=== PATIENT | male | born 1980 | race Hispanic/Latino ===

== ENCOUNTER 2024-03-20 17:20 | Emergency (ER) | payer SELFPAY ==
[2024-03-20] MEDS ORDERED: IPRATROPIUM BROM 0.5MG/2.5ML ONE (18:15)
[2024-03-20] MEDS ORDERED: dexAMETHasone 10 MG/ML VIAL ONE (18:15)
[2024-03-20] MEDS ORDERED: ALBUTEROL 2.5 MG/3 ML NEB SOL ONE (18:15)
--- NOTE | 2024-03-20 18:25 | RAD REPORT ---
EXAMINATION: TWO VIEW CHEST XR CLINICAL INDICATION: COUGH TECHNIQUE: 2 views of the chest was performed. COMPARISON: No prior exam. FINDINGS: Interstitial markings mildly prominent which probably represent infection. No focal consolidation typ ical pneumonia seen. The heart is upper limit of normal in size. No displaced fractures evident.
[2024-03-20 19:25] LABS: SARS-CoV-2 Antigen CONTROL BLUE LINE VIS/BG OK; SARS-CoV-2 Antigen Rapid Res Negative (Negative)
--- NOTE | 2024-03-20 19:33 | EDPHYS ---
Physician Documentation [facility] Name: Sam Paz Age: 43 yrs Sex: Male : 1980 Arrival Date: 03/20/2024 Time: 17:20 Bed 20 Private MD: ED Physician Tanya Russell HPI: 03/20 17:59 This 43 yrs old Male presents to ER via Ambulatory with complaints of Painful Cough, sb4 Flu Symptoms, Congestion. 17:59 cough x 1 month. has been worse the past few days with sinus congestion and headache. sb4 positive sick contacts at work. has not taken any OTC medications. endorses mild sob. no nausea, vomiting, or diarrhea. Historical: - Allergies: 17:50 PENICILLINS; tm6 - PMHx: 17:50 None; tm6 - PSHx: 17:50 None; tm6 - Immunization history:: Flu vaccine is not up to date. - Infectious Disease History:: Denies. - Social history:: Smoking status: Patient reports the use of cigarette tobacco products, smokes one-half pack cigarettes per day. ROS: 17:59 Constitutional: Negative for fever, chills, and weight loss, sb4 17:59 ENT: Positive for sinus congestion, 17:59 Respiratory: Positive for cough, pleurisy, shortness of breath, 17:59 Neuro: Positive for headache, 17:59 All other systems are negative, Exam: 17:59 Head/Face: Normocephalic, atraumatic. Eyes: Extra-ocular motions intact. Periorbital sb4 areas with no swelling, redness, or edema. ENT: Mucous membranes moist. Cardiovascular: Regular rate and rhythm with a normal S1 and S2. Respiratory: No increased work of breathing, no retractions or nasal flaring. Abdomen/GI: Soft, non-tender, no distension. Skin: Warm, dry with normal turgor. Normal color with no rashes, no lesions, and no evidence of cellulitis. 17:59 Constitutional: The patient appears alert, awake, obviously ill, Vital Signs: 17:48 BP 154 / 97; Pulse 106; Resp 20; Temp 98.5(O); Pulse Ox 96% on R/A; MAP 112 mmHg; tm6 Weight 79.38 kg; Height 5 ft. 8 in. ; Pain 0/10; 19:18 BP 138 / 95; Pulse 91; Resp 19; Pulse Ox 95% on R/A; rg5 17:48 Body Mass Index 26.61 (79.38 kg, 172.72 cm) tm6 17:48 Pain Scale: Adult tm6 MDM: 17:42 Medical Screening Exam initiated sb4 19:34 Data reviewed: vital signs, nurses notes, lab test result(s), radiologic studies, and sb4 as a result, I will discharge patient. Counseling: I had a detailed discussion with the patient and/or guardian regarding the historical points, exam findings, and any diagnostic results supporting the discharge/admit diagnosis, radiology results, the need for outpatient follow up, for definitive care, to return to the emergency department if symptoms worsen or persist or if there are any questions or concerns that arise at home. 03/20 17:45 Order name: SARS RAPID; Complete Time: 19:26 sb4 03/20 17:45 Order name: Flu; Complete Time: 19:26 sb4 03/20 17:45 Order name: Chest Pa And Lat (2 Views) XRAY; Complete Time: 18:26 sb4 Administered Medications: 18:00 Drug: DuoNeb Nebulize (3:1) (2.5 mg - 0.5 mg) 3 ml Nebulizer once Route: Nebulizer; rs5 19:00 Follow up: Response: No adverse reaction rg5 18:00 Drug: Dexamethasone IM 10 mg IM once Route: IM; Site: left ventrogluteal; rs5 19:00 Follow up: Response: No adverse reaction rg5 Disposition Summary: 03/20/24 19:32 Discharge Ordered Notes: Location: Home sb4 Problem: new sb4 Symptoms: have improved sb4 Condition: Stable sb4 Diagnosis - Acute upper respiratory infection, unspecified sb4 Followup: sb4 - With: Emergency Department - When: As needed - Reason: Trouble breathing, Worsening of condition Discharge Instructions: - Discharge Summary Sheet sb4 - Upper Respiratory Infection, Adult, [id number] sb4 Forms: - Antibiotic Education sb4 - Patient Portal Instructions sb4 - Leadership Thank You Letter sb4 Prescriptions: - albuterol sulfate 90 mcg/actuation Inhalation HFA Aerosol Inhaler - inhale 1 inhalation INHALATION route every 4 to 6 hours as needed for wheezing sb4 or shortness of breath; 1 Applicator; Refills: 0, Product Selection Permitted - Zithromax Z-Olman 250 mg Oral Tablet - take 1 tablet ORAL route as directed for 5 days Day 1 - take two (2) tablets sb4 one time. Day 2, 3, 4 , 5 take one (1) tablet once daily.; 6 tablet; Refills: 0, Product Selection Permitted - Prednisone 20 mg Oral Tablet - take 1 tablet ORAL route every 12 hours for 5 days; 10 tablet; Refills: 0, sb4 Product Selection Permitted Signatures: Dispatcher [employer] EDMS Gege Wright PA-C PA-C sb4 Kishan Olguin, RN RN rs5 Nuha Del Rosario RN RN tm6 Rey Morelos RN rg5 Corrections: (The following items were deleted from the chart) 17:45 17:45 SARS-COV-2 Antigen Rapid+I.LAB.BRZ ordered. EDMS EDMS 17:45 17:45 Influenza Screen (A \T\ B)+BA.LAB.BRZ ordered. EDMS EDMS 17:45 17:45 Chest Pa And Lat (2 Views)+RAD.RAD.BRZ ordered. EDMS EDMS
--- NOTE | 2024-03-20 19:33 | ER ---
Nurse's Notes [facility] Name: Sam Paz Age: 43 yrs Sex: Male : 1980 Arrival Date: 03/20/2024 Time: 17:20 Bed 20 Private MD: Diagnosis: Acute upper respiratory infection, unspecified Presentation: 03/20 17:48 Chief complaint: Patient states: cough and congestion x1 month, but worsening the last tm6 couple of days. Also having body aches, headache, fatigue, and sore throat. Coronavirus screen: Client denies travel out of the [place] in the last 14 days. Ebola Screen: Patient negative for fever greater than or equal to 101.5 degrees Fahrenheit, and additional compatible Ebola Virus Disease symptoms Patient denies exposure to infectious person. Patient denies travel to an Ebola-affected area in the 21 days before illness onset. No symptoms or risks identified at this time. Resp Distress? No respiratory distress is noted at this time. Initial Sepsis Screen: Does the patient meet any 2 criteria? HR > 90 bpm. Does the patient have a suspected source of infection? No. Patient's initial sepsis screen is negative. Risk Assessment: Do you want to hurt yourself or someone else? Patient reports no desire to harm self or others. Onset of symptoms was February 18, 2024. 17:48 Method Of Arrival: Ambulatory tm6 17:48 Acuity: ALVERTO 4 tm6 Triage Assessment: 17:50 General: Appears in no apparent distress. Behavior is calm, cooperative. Pain: Denies tm6 pain. EENT: Reports nasal congestion sore throat. Neuro: Level of Consciousness is awake, alert, obeys commands, Oriented to person, place, time, situation, Reports headache. Cardiovascular: Patient's skin is warm and dry. Respiratory: Reports cough that is since x1 month Breath sounds are clear. GI: No signs and/or symptoms were reported involving the gastrointestinal system. Abdomen is flat, non-distended. : No signs and/or symptoms were reported regarding the genitourinary system. Derm: No signs and/or symptoms reported regarding the dermatologic system. Derm: No signs and/or symptoms reported regarding the dermatologic system. Musculoskeletal: No signs and/or symptoms reported regarding the musculoskeletal system. Historical: - Allergies: 17:50 PENICILLINS; tm6 - PMHx: 17:50 None; tm6 - PSHx: 17:50 None; tm6 - Immunization history:: Flu vaccine is not up to date. - Infectious Disease History:: Denies. - Social history:: Smoking status: Patient reports the use of cigarette tobacco products, smokes one-half pack cigarettes per day. Screenin:10 [facility] ED Fall Risk Assessment (Adult) History of falling in the last 3 months, rg5 including since admission No falls in past 3 months (0 pts) Confusion or Disorientation No (0 pts) Intoxicated or Sedated No (0 pts) Impaired Gait No (0 pts) Mobility Assist Device Used No (0 pt) Altered Elimination No (0 pt) Score/Fall Risk Level 0 - 2 = Low Risk Oriented to surroundings, Maintained a safe environment, Educated pt \T\ family on fall prevention, incl call for assistance when getting out of bed, Hourly rounding (assess needs \T\ fall precautionary measures) done. 19:10 Abuse screen: Denies threats or abuse. Nutritional screening: No deficits noted. rg5 Tuberculosis screening: No symptoms or risk factors identified. Assessment: 19:00 Respiratory: Reports cough that is dry, Respiratory effort is even, unlabored, rg5 Respiratory pattern is regular, symmetrical. 19:10 General: Appears in no apparent distress. Behavior is calm, cooperative, Reports rg5 feeling ill for 12-24 hours, fatigue for 0-12 hours. 19:10 Pain: Denies pain. Neuro: Level of Consciousness is awake, alert, obeys commands, rg5 Oriented to person, place, time. Cardiovascular: Patient's skin is warm and dry. Respiratory: Airway is patent Trachea midline Respiratory effort is even, unlabored, Respiratory pattern is regular, symmetrical. Vital Signs: 17:48 BP 154 / 97; Pulse 106; Resp 20; Temp 98.5(O); Pulse Ox 96% on R/A; MAP 112 mmHg; tm6 Weight 79.38 kg; Height 5 ft. 8 in. ; Pain 0/10; 19:18 BP 138 / 95; Pulse 91; Resp 19; Pulse Ox 95% on R/A; rg5 17:48 Body Mass Index 26.61 (79.38 kg, 172.72 cm) tm6 17:48 Pain Scale: Adult 6 ED Course: 17:25 Patient arrived in ED. sj2 17:25 Gege Wright PA-C is PHCP. sb4 17:25 Tanya Russell MD is Attending Physician. sb4 17:50 Triage completed. tm6 17:50 Arm band placed on right wrist. tm6 17:54 Kishan Olguin, RN is Primary Nurse. rs5 18:18 Chest Pa And Lat (2 Views) XRAY In Process Unspecified. EDMS 19:10 Patient has correct armband on for positive identification. Door closed. Noise rg5 minimized. 19:10 No provider procedures requiring assistance completed. Patient did not have IV access rg5 during this emergency room visit. Patient maintains SpO2 saturation greater than 95% on room air. 19:34 Provided Education on: post er care. rg5 Administered Medications: 18:00 Drug: DuoNeb Nebulize (3:1) (2.5 mg - 0.5 mg) 3 ml Nebulizer once Route: Nebulizer; rs5 19:00 Follow up: Response: No adverse reaction rg5 18:00 Drug: Dexamethasone IM 10 mg IM once Route: IM; Site: left ventrogluteal; rs5 19:00 Follow up: Response: No adverse reaction rg5 Medication: 19:00 VIS not applicable for this client. rg5 Outcome: 19:32 Discharge ordered by MD. sb4 19:39 Discharged to home ambulatory, rg5 19:39 Condition: stable 19:39 Discharge instructions given to patient, Instructed on discharge instructions, Demonstrated understanding of instructions, follow-up care, medications, Prescriptions given X 3, 19:40 Patient left the ED. rg5 Signatures: Dispatcher [employer] EDHI eGge Wright PA-C PA-C sb4 Kishan Olguin, RN RN rs5 Nuha Del Rosario RN RN tm6 Rey Morelos RN RN rg5 Kieran Tapia sj2 Corrections: (The following items were deleted from the chart) 19:34 19:18 BP 138 / 95; Pulse 110bpm; Resp 19bpm; Pulse Ox 95% RA; rg5 rg5
[2024-03-20 20:17] VITALS: TEMP 98.5
[2024-03-20 20:18] VITALS: BP 138/95; O2SAT 95
== END 2024-03-20 19:40 | disposition home or self-care (01) ==
LOC: ER 17:20
DX: J06.9 Acute upper respiratory infection, unspecified (principal); F17.210 Nicotine dependence, cigarettes, uncomplicated; Z11.52 Encounter for screening for COVID-19
CPT/HCPCS: 36415; 71046; 87804; 87811; 96372; 99284; J1100; J7613; J7644